=== PATIENT | female | born 1995 | race Caucasian/White ===

== ENCOUNTER 2017-01-05 09:14 | Emergency (ER) | payer MEDICAID ==
--- NOTE | 2017-01-05 09:34 | EDPHY ---
H & P Stated Complaint: [place] teeth out 01/04/17;swelling L jaw today;sent here by dentist for eval - Personal History LMP (Females 10-55): IUD In Place Current Tetanus Diphtheria and Acellular Pertussis (TDAP): Yes - Medical/Surgical History Hx Asthma: No Hx Chronic Respiratory Disease: No Hx Diabetes: No Hx Cardiac Disease: No Hx Renal Disease: No Hx Cirrhosis: No Hx Alcoholism: No Hx HIV/AIDS: No Hx Splenectomy or Spleen Trauma: No Other PMH: MRSA - Social History Smoking Status: Never smoked Time Seen by Provider: 01/05/17 09:28 HPI/ROS: CHIEF COMPLAINT: Facial swelling, pain post 3rd molar extraction HISTORY OF PRESENT ILLNESS: 21-year-old immunocompetent female arrives via private vehicle. She is postop day 1 post complete 3rd molar extraction, saw her dentist/oral surgeon this morning for complaints of continued bleeding from her left maxillary 3rd molar extraction site and left facial swelling and trismus and was told to go to the ER for further evaluation. She is complaining of pain and trismus. She denies: Fever, chills, vomiting, nuchal rigidity. REVIEW OF SYSTEMS: A ten point review of systems was performed and is negative with the exception of the items mentioned in the HPI PAST MEDICAL & SURGICAL HISTORY: Postop day 1 post 3rd molar extraction SOCIAL HISTORY: nonsmoker PHYSICAL EXAM (Prior to examination, patient consented to physical exam, hands were washed and my usual and customary physical exam procedures followed) 1) GENERAL: Well-developed, well-nourished, alert and oriented. Appears uncomfortable 2) HEAD: Normocephalic, atraumatic 3) HEENT: Asymmetrical facial swelling noted, left facial swelling and tenderness. She has 3 cm of trismus. She has slow bleeding at the left maxillary 3rd molar extraction site. The submental and submandibular regions are soft with no induration. The sublingual region is soft with no evidence of Elliott's angina 4) NECK: Full range of motion, no meningeal signs. 5) LUNGS: Clear auscultation bilaterally, no wheezes, no rhonchi, no retractions. 6) HEART: Regular rate and rhythm, no murmur, no heave, no gallop. 7) ABDOMEN: No guarding, no rebound, no focal tenderness, 8) MUSCULOSKELETAL: No peripheral edema or discoloration. 9) BACK: No CVA tenderness. 10) SKIN: No rash, no petechiae. 11) Psychiatric: Patient is oriented X 3, there is no agitation. DIFFERENTIAL DIAGNOSIS: in no particular include but limited to dry socket, facial abscess, Elliott's angina (Sally Salter) Constitutional: Initial Vital Signs Temperature (C) 37.4 C 01/05/17 09:15 Heart Rate 104 H 01/05/17 09:15 Respiratory Rate 18 01/05/17 09:15 Blood Pressure 100/75 01/05/17 09:15 O2 Sat (%) 97 01/05/17 09:15 O2 Delivery Mode Room Air Allergies/Adverse Reactions: No Known Allergies Allergy (Verified 01/05/17 09:15) Home Medications: Medication Instructions Recorded Amoxicillin 500 mg PO 01/05/17 Hydrocodone/Acetaminophen [[place] 1 each PO Q4 01/05/17 5/325 (*)] Medical Decision Making - Diagnostics Imaging Results: Images reviewed by myself (Sally Salter) ED Course/Re-evaluation: 9:35 a.m.: Plan will be obtain imaging of the patient's maxillofacial region to evaluate for possible deep space infection. She is also noted to have actively bleeding 3rd molar extraction site and tranexamic acid will be it placed on gauze. Note, the TXA is not ordered for mass transfusion/trauma, however had to be ordered from this order set. Patient was also seen and examined by Dr. Ana Richardson. I consulted with her dentist Dr. Corey Porras at 11:54 a.m., discussed the exam and diagnostic findings. The patient does no significant increase in range of motion and decrease in her pain after IV Toradol. She has also received IV clindamycin. I think the patient can be discharged home today (Sunday) and recommended follow up on Sunday with her dentist. Her dentist also recommended I give the patient his cell phone number so that she may contact him over the weekend. Usual and customary ENT precautions provided. Patient had resolution of her dental bleeding after txa soaked gauze pad (Sally Salter) I have evaluated and participated in the management of this patient. My co- signature indicates that I have reviewed this chart and that I agree with the findings and the plan of care as documented. My personal history and physical findings include: Status post extraction of wisdom teeth yesterday. She has had increasing swelling of the left side of her face and continued bleeding from 1 of the extraction sites. At the time of my exam trans examined acid had been placed on the bleeding site of the 3rd molar and bleeding has been slowed. She has left facial swelling without induration, warmth, or erythema. Trismus is present, but she has improved opening of her mouth after receiving IV Toradol. She is able to open 2 fingerbreadths, approximately 3.5 cm. No swelling on the floor of her mouth. No cervical lymphadenopathy. She is not febrile. CT scan results reviewed by me. She has been able to take liquids at home and feels that she will continued to be able to do so. Follow-up has been arranged with her dentist. She will be discharged on oral antibiotics. Danger signs have been reviewed with her. (Ana Richardson) - Data Points Laboratory Results: Laboratory Results 01/05/17 09:32 01/05/17 10:13 Medications Given: Discontinued Medications Tranexamic Acid 1,000 mg/ (Sodium Chloride) 110 mls @ 660 mls/hr IV ONCE ONE Stop: 01/05/17 09:44 Last Admin: 01/05/17 09:47 Dose: 110 mls Sodium Chloride (Ns) 1,000 mls @ 0 mls/hr IV ONCE ONE PRN Reason: Wide Open Stop: 01/05/17 09:45 Last Admin: 01/05/17 09:48 Dose: 1,000 mls Clindamycin Phosphate/Dextrose (Cleocin 600 Mg (Premix)) 50 mls @ 100 mls/hr IV EDNOW ONE PRN Reason: Protocol Stop: 01/05/17 10:18 Last Admin: 01/05/17 10:03 Dose: 50 mls Ketorolac Tromethamine (Toradol) 15 mg IVP EDNOW ONE Stop: 01/05/17 09:45 Last Admin: 01/05/17 09:48 Dose: 15 mg Departure - Departure Disposition: Home, Routine, Self-Care Clinical Impression: Dry tooth socket Condition: Good Instructions: Toothache (ED), Dry Socket (ED) Additional Instructions: Return to the ER immediately if you cannot swallow, have drooling, fevers, neck stiffness, cannot open your jaw, or any other symptoms that concern you. Referrals: Follow-up, with Dr. Porras on Sunday [Other] - As per Instructions
[2017-01-05] MEDS ORDERED: TRANEXAMIC ACID 1,000 MG in NS 100 ML IV ONE (09:35)
[2017-01-05] MEDS ORDERED: KETOROLAC 15 MG/1 ML SDV ONE (09:42)
[2017-01-05] MEDS ORDERED: NS 1,000 ML IV ONE (09:44)
[2017-01-05] MEDS ORDERED: KETOROLAC 15 MG/1 ML SDV IVP ONE (09:44)
[2017-01-05] MEDS ORDERED: CLINDAMYCIN 600 MG/DEXTROSE 50 ML IV ONE (09:49)
[2017-01-05 10:13] LABS: % IMMATURE GRANULYOCYTES 0.4 % (0.0-1.1); ABSOLUTE IMMATURE GRANULOCYTES 0.04 10^3/uL (0.00-0.10); ADD DIFF? NO; ADD MORPH? NO; ADD SCAN? NO; ATYPICAL LYMPHOCYTE FLAG 10 (0-99); FRAGMENT RBC FLAG 0 (0-99); HEMATOCRIT 40.3 % (38.0-47.0); HEMOGLOBIN 13.4 g/dL (12.6-16.3); LEFT SHIFT FLG 0 (0-99); LIPEMIA HEMOLYSIS FLAG 80 (0-99); MEAN CELL HEMOGLOBIN CONCENTR. 33.3 g/dL (32.4-36.7); MEAN CELL VOLUME 93.3 fL (81.5-99.8); MEAN PLATELET VOLUME 11.9 fL (8.7-11.7); PLATELET CLUMPS FLAG 0 (0-99); PLATELET COUNT 181 10^3/uL (150-400); RED BLOOD CELL COUNT 4.32 10^6/uL (4.18-5.33); RED CELL DISTRIBUTION WIDTH 11.6 % (11.5-15.2)
[2017-01-05 10:21] LABS: ANION GAP 12 mEq/L (8-16); CALCIUM 9.7 mg/dL (8.5-10.4); CARBON DIOXIDE 22 mEq/l (22-31); CHLORIDE 103 mEq/L (97-110); CREATININE 0.8 mg/dL (0.6-1.0); GLOMERULAR FILTRATION RATE > 60; GLUCOSE 96 mg/dL (70-100); POTASSIUM 4.1 mEq/L (3.5-5.2); SODIUM 137 mEq/L (134-144)
[2017-01-05] MEDS ORDERED: IOPAMIDOL (ISOVUE-300) 100 ML BTL ONE (10:28)
[2017-01-05 12:56] VITALS: BP 113/66; PULSE 98; RESP 16; TEMP 99.1; O2SAT 96
== END 2017-01-05 12:45 | disposition home or self-care (01) ==
DX: M27.3 Alveolitis of jaws (principal); G89.18 Other acute postprocedural pain
CPT/HCPCS: 96365; J1885; Q9967